=== PATIENT | male | born 1975 | race Caucasian/White ===

== ENCOUNTER → 2024-07-16 15:45 | Outpatient (REF) | payer BC, SELFPAY | LOC: HWRCS 15:45 | PROVIDERS: ATTENDING PHYSICIAN Internal Medicine; FAMILY PHYSICIAN Family Medicine | DX: R20.0 Anesthesia of skin (principal) | CPT/HCPCS: 93306 ==

== ENCOUNTER → 2024-08-26 13:40 | Outpatient (REF) | payer BC, SELFPAY | LOC: RAD 13:40 | PROVIDERS: ATTENDING PHYSICIAN Surgery Vascular Surgery | DX: G54.0 Brachial plexus disorders (principal) | CPT/HCPCS: 71275; Q9967 ==

== ENCOUNTER → 2024-08-28 13:40 | Outpatient (REF) | payer BC, SELFPAY | LOC: RAD 13:40 | PROVIDERS: ATTENDING PHYSICIAN Surgery Vascular Surgery; REFERRING PHYSICIAN Internal Medicine | DX: G54.0 Brachial plexus disorders (principal) | CPT/HCPCS: 93923 ==